=== PATIENT | female | born 1975 | race Caucasian/White ===

== ENCOUNTER 2020-06-11 08:00 | Day surgery (SDC) | payer OTHER ==
[2020-06-05 12:24] VITALS: BMI 28.1
[2020-06-11] MEDS ORDERED: CIPROFLOXACIN 0.3% EYE DROPS 5 ML BOTTLE ONE (08:03)
[2020-06-11] MEDS ORDERED: PHENYLEPHRINE 2.5% OPHTH SOLN 15 ML BOTTLE ONE (08:03)
[2020-06-11] MEDS ORDERED: TROPICAMIDE 1% OPHTH SOLN 15 ML BOTTLE ONE (08:03)
[2020-06-11] MEDS ORDERED: CYCLOPENTOLATE 2% OPHTH SOLN 2 ML BOTTLE ONE (08:03)
[2020-06-11] MEDS ORDERED: CYCLOPENTOLATE 2% OPHTH SOLN 2 ML BOTTLE OD ONE ×3 (08:40→08:50)
[2020-06-11] MEDS ORDERED: TROPICAMIDE 1% OPHTH SOLN 15 ML BOTTLE OD ONE ×3 (08:40→08:50)
[2020-06-11] MEDS ORDERED: PHENYLEPHRINE 2.5% OPHTH SOLN 15 ML BOTTLE OD ONE ×3 (08:40→08:50)
[2020-06-11] MEDS ORDERED: CIPROFLOXACIN HCL 0.3% OPHTH 2.5ML BOTTLE OD ONE ×3 (08:40→08:50)
[2020-06-11] MEDS ORDERED: MIDAZOLAM HCL 2 MG/2 ML SINGLE DOSE VIAL ONE (10:39)
[2020-06-11] MEDS ORDERED: BSS (NA/CA/MG/K) BALANCED SALT SOLUTION OPHTH SOLN 15 ML BOTTLE ONE (10:45)
[2020-06-11] MEDS ORDERED: LIDOCAINE 1% P/F 10 MG/ML VIAL ONE (10:45)
[2020-06-11] MEDS ORDERED: CARBACHOL 0.01% INTRA-OCULAR 1.5 ML VIAL ONE (10:46)
[2020-06-11 11:58] VITALS: TEMP 97.8
[2020-06-11 12:01] VITALS: BP 122/70; PULSE 67
== END 2020-06-11 11:55 | disposition home or self-care (01) ==
LOC: FASU 08:00
PROVIDERS: ATTEND Ophthalmology
PROC: 08RJ3JZ Replacement of Right Lens with Synthetic Substitute, Percutaneous Approach (ICD-10-PCS; principal; 2020-06-11 10:53)
DX: H26.8 Other specified cataract (principal)
CPT/HCPCS: 84703

== ENCOUNTER 2021-11-19 09:17 | Emergency (ER) | payer OTHER ==
[2021-11-19 09:21] VITALS: BP 132/84; PULSE 72; RESP 16; TEMP 97.9; BMI 28.1
[2021-11-19] MEDS ORDERED: DIPHTH,PERTUSS(ACELL),TET 0.5 ML DISP.SYRIN IM ONE ×2 (09:32→09:35)
[2021-11-19] MEDS ORDERED: IBUPROFEN 400 MG TABLET (FP) PO ONE ×2 (09:32→09:35)
== END 2021-11-19 11:09 | disposition home or self-care (01) ==
LOC: FER 09:17
PROC: 3E0234Z Introduction of Serum, Toxoid and Vaccine into Muscle, Percutaneous Approach (ICD-10-PCS; principal; 2021-11-19)
DX: M79.641 Pain in right hand (principal); S02.5XXA Fracture of tooth (traumatic), initial encounter for closed fracture; W19.XXXA Unspecified fall, initial encounter; Y92.9 Unspecified place or not applicable
CPT/HCPCS: 73110-TC-RT-FY; 73130-TC-RT-FY; 90715; 99284-25